=== PATIENT | female | born 1955 | race Two or more races ===

== ENCOUNTER 2020-07-07 06:00 | Day surgery (SDC) | payer OTHER ==
[~2020-07-07 06:00] MED LIST: IRBESARTAN-HCT1 EAC1 PO; LIPITOR20 MG PO; SEROQUEL XR200 MG PO; SYNTHROID50 MCG PO
== END 2020-07-07 15:40 | disposition home or self-care (01) ==
LOC: CIR.AMB 06:00 → AMB-ENDOS 10:45 → CIR.AMB 10:45
PROVIDERS: ATTEND Colon & Rectal Surgery
DX: K64.8 Other hemorrhoids (principal); K64.4 Residual hemorrhoidal skin tags; Z20.828 Contact with and (suspected) exposure to other viral communicable diseases